=== PATIENT | male | born 1980 | race Caucasian/White ===

== ENCOUNTER 2020-01-18 18:41 | Emergency (ER) | payer MEDICAID ==
[~2020-01-18] VITALS: Ht 188 cm; Wt 104.5 kg
[~2020-01-18 18:41] MED LIST: CYCL-1 PO
[2020-01-18 18:45] VITALS: BP 141/98
[2020-01-18] MEDS ORDERED: ALBU6.7H9 INH (19:25)
[2020-01-18] MEDS ORDERED: CEPH250T PO (19:31)
== END 2020-01-18 19:38 | disposition home or self-care (01) ==
LOC: ER 18:42
DX: J06.9 Acute upper respiratory infection, unspecified (principal); Z20.828 Contact with and (suspected) exposure to other viral communicable diseases; I10 Essential (primary) hypertension; E11.9 Type 2 diabetes mellitus without complications; G89.29 Other chronic pain; Z72.89 Other problems related to lifestyle; Z79.899 Other long term (current) drug therapy
CPT/HCPCS: 36415; 71045; 87635; 99283; 99284

== ENCOUNTER 2020-01-22 22:27 | Emergency (ER) | payer MEDICAID ==
[~2020-01-22] VITALS: Ht 188 cm; Wt 106.8 kg
[~2020-01-22 22:27] MED LIST changes: +ALBU6.7H9 INH; +CEPH250T PO
--- NOTE | 2020-01-22 22:36 | NUR ---
pt reports about 30-40 min ago he got a mouthfull of antifreeze by accident. was fixing his vehicle and accidently got "a mouthfull of antifreeze" . states spit it right out. vomited 2-3 times after and then made hiself vomit a few times since then. This was accidental, not suicidal. Dr. Lindquist updated of Pt and verbal received for blood toxicolgy profile, surum osmlality, and urine tox screen and ua.
--- NOTE | 2020-01-22 22:50 | NUR ---
POISON CONTROL CONTACTED ([facility]). PT WILL HAVE NEEDED TO CONSUME MORE THAN 20 ML OF FLUID TO CAUSE HARM. IF INGESTION IS > 202 ML THEN CBC,CMP,ETOH, AND SERUM OSMOLALITY IS RECOMMENDED.
[2020-01-22] MEDS ORDERED: DOL10T PO (23:17)
[2020-01-22 23:24] VITALS: BP 161/106
[2020-01-22 23:26] LABS: BASOPHILS % (AUTO) 0.5 % (0-1); EOSINOPHILS # (AUTO) 0.1 X10'3 (0-0.9); EOSINOPHILS % (AUTO) 1.5 % (0-6); HEMATOCRIT 41.5 % (42.0-52.0); HEMOGLOBIN 14.1 g/dl (14.0-17.9); LYMPHOCYTES # (AUTO) 2.1 X10'3 (1.1-4.8); LYMPHOCYTES % (AUTO) 21.8 % (21-51); MEAN CORPUSCULAR HEMOGLOBIN 27.6 PG (27.0-31.0); MEAN CORPUSCULAR HGB CONC 34.1 g/dL (33.0-36.5); MEAN CORPUSCULAR VOLUME 80.9 FL (78-98); MEAN PLATELET VOLUME 7.6 FL (7.4-10.4); MONOCYTES # (AUTO) 0.9 X10'3 (0-0.9); MONOCYTES % (AUTO) 9.9 % (2-12); NEUTROPHILS # (AUTO) 6.4 X10'3 (1.8-7.7); NEUTROPHILS % (AUTO) 66.3 % (42-75); PLATELET COUNT 357 X10'3 (140-440); RED BLOOD COUNT 5.13 X10'6 (4.70-6.10); RED CELL DISTRIBUTION WIDTH 14.4 % (11.5-14.5); WHITE BLOOD COUNT 9.6 X10'3 (4.5-11.0)
[2020-01-22 23:33] LABS: OSMOLALITY 301 MOSM/K (280-300)
[2020-01-22 23:35] LABS: ALANINE AMINOTRANSFERASE 31 U/L (12-78); ALBUMIN 3.7 G/DL (3.4-5.0); ALBUMIN/GLOBULIN RATIO 0.8 (1.1-1.5); ALKALINE PHOSPHATASE 125 IU/L (46-116); ANION GAP 8 (8-16); ASPARTATE AMINO TRANSFERASE 27 U/L (10-37); BILIRUBIN,TOTAL 0.7 MG/DL (0.1-1.0); BLOOD UREA NITROGEN 21 MG/DL (7-18); BUN/CREATININE RATIO 21.9 (5.4-32.0); CALCIUM 9.4 MG/DL (8.5-10.1); CHLORIDE 105 MMOL/L (99-107); CREATININE 0.96 MG/DL (0.60-1.10); GLUCOSE 90 MG/DL (70-104); POTASSIUM 4.1 MMOL/L (3.5-5.1); SODIUM 143 MMOL/L (135-145); TOTAL CARBON DIOXIDE 29.8 MMOL/L (24-32); TOTAL PROTEIN 8.4 G/DL (6.4-8.2); eGFR 88 ML/MIN
[2020-01-22 23:45] LABS: ETHANOL < 0.010 GM/DL (0.0-0.010)
[2020-01-22 23:46] LABS: ACETAMINOPHEN < 2.0 UG/ML (10-30)
[2020-01-23 00:04] LABS: CLARITY,URINE CLEAR (Clear); COLOR,URINE YELLOW (Yellow); GLUCOSE, URINE NEGATIVE (Neg); KETONES,URINE NEGATIVE (Neg); LEUKOCYTE ESTERASE ,URINE NEGATIVE (Neg); NITRITES, URINE NEGATIVE (Neg); OCCULT BLOOD,URINE NEGATIVE (Neg); PROTEIN,URINE NEGATIVE (Neg); UROBILINOGEN,URINE 0.2 E.U/dL (0.2-1.0)
[2020-01-23 00:05] LABS: UA COLLECTION TYPE CLN CATCH MIDSTREAM
[2020-01-23 00:34] LABS: URINE AMPHETAMINE SCREEN POSITIVE (Neg); URINE BARBITUATE SCREEN NEGATIVE (Neg); URINE BENZODIAZEPINES SCREEN NEGATIVE (Neg); URINE CANNABINOID SCREEN NEGATIVE (Neg); URINE COCAINE SCREEN NEGATIVE (Neg); URINE METHADONE SCREEN POSITIVE (Neg); URINE OPIATE SCREEN POSITIVE (Neg); URINE PHENCYCLIDINE SCREEN NEGATIVE (Neg)
[2020-01-23 00:42] LABS: OSMOLALITY UA 287 MOSM/K (50-1400)
== END 2020-01-23 00:17 | disposition home or self-care (01) ==
LOC: ER 22:28
DX: T50.905A Adverse effect of unspecified drugs, medicaments and biological substances, initial encounter (principal); I10 Essential (primary) hypertension; E11.9 Type 2 diabetes mellitus without complications; G89.29 Other chronic pain; Z72.89 Other problems related to lifestyle; Z79.899 Other long term (current) drug therapy
CPT/HCPCS: 36415; 80053; 80305; 80320; 80329; 81003; 83930; 83935; 84443; 85025; 99283

== ENCOUNTER 2020-11-01 23:49 | Emergency (ER) | payer MEDICAID, OTHER ==
[~2020-11-01] VITALS: Ht 188 cm; Wt 114.0 kg
[~2020-11-01 23:49] MED LIST changes: -CEPH250T PO; -CYCL-1 PO; +DOL10T PO
--- NOTE | 2020-11-02 00:45 | NUR ---
cuts firewood and thought he did something to leg denies wood splinters
[2020-11-02 02:44] VITALS: BP 138/88
== END 2020-11-02 02:45 | disposition home or self-care (01) ==
LOC: ER 23:50
DX: R59.0 Localized enlarged lymph nodes (principal); R60.0 Localized edema; I10 Essential (primary) hypertension; E11.9 Type 2 diabetes mellitus without complications; G89.29 Other chronic pain; Z72.89 Other problems related to lifestyle; Z79.899 Other long term (current) drug therapy
CPT/HCPCS: 93971; 99284

== ENCOUNTER 2024-08-17 02:50 | Emergency (ER) | payer MEDICAID ==
[~2024-08-17] VITALS: Ht 188 cm; Wt 107.8 kg
[~2024-08-17 02:50] MED LIST changes: +ALBU6.7H14 INH; -ALBU6.7H9 INH
[2024-08-17 03:01] VITALS: BP 133/73; PULSE 87; RESP 16; TEMP 98.4; O2SAT 96
== END 2024-08-17 05:45 | disposition left against medical advice (07) ==
LOC: ER 02:52
DX: L03.115 Cellulitis of right lower limb (principal); L03.116 Cellulitis of left lower limb; Z53.21 Procedure and treatment not carried out due to patient leaving prior to being seen by health care provider